=== PATIENT | male | born 1960 | race Caucasian/White ===

== ENCOUNTER 2018-07-22 10:35 | Day surgery (SDC) | payer BC, OTHER ==
[2018-07-17 14:10] VITALS: BMI 27.8
[~2018-07-22 10:35] MED LIST: LACTATED RINGERS 1,000 ML IV SCH; LIDOCAINE 1% 20 ML VIAL (10MG/ML) FOR IV START INTRADERMA PRN
[2018-07-22 11:14] VITALS: TEMP 97.4
[2018-07-22] MEDS ORDERED: PROPOFOL 10 MG/ML 20 ML VIAL IV ONE (11:22)
--- NOTE | 2018-07-22 11:59 | P.PCN ---
Date of Procedure: 07/22/18 Procedure(s) Performed: Procedure: Total colonoscopy. Preoperative diagnosis: Screening for neoplasia. Postoperative diagnosis: Exam within normal limits. Preparation: HalfLytely prep. Sedation: Was provided by anesthesia. Brief clinical history: The patient is a 58-year-old male who is scheduled for t his evaluation for screening for neoplasia age being his risk factor. He has no abdominal complaints, bleeding or anemia. His prior exam was around 15 years ago. Procedure: With the patient on his left lateral decubitus position and after informed consent and adequate sedation, the perianal area was inspected and it did not show any fissures or fistulas. The were no masses felt on digital rect al examination. The Olympus CFH 190L video colonoscope was then inserted in the rectum in the usual fashion and advanced to the cecum. The mucosa appeared healthy. No polyps or tumors were seen or any obvious diverticular disease or other pathology. I retroflexed the endoscope in the rectum before the endoscope was withdrawn. The patient tolerated the procedure well. Plan: The patient was reassured. He will follow up with you as planned and I recommended repeat exam in 10 years.
[2018-07-22 12:09] VITALS: BP 154/84; PULSE 58; RESP 16
== END 2018-07-22 12:40 | disposition home or self-care (01) ==
LOC: ORWHC2ENDO 10:35
DX: Z12.11 Encounter for screening for malignant neoplasm of colon (principal); Z88.1 Allergy status to other antibiotic agents; I10 Essential (primary) hypertension; G47.33 Obstructive sleep apnea (adult) (pediatric); F17.200 Nicotine dependence, unspecified, uncomplicated; Z79.82 Long term (current) use of aspirin
CPT/HCPCS: J2704; G0121; 45378

== ENCOUNTER 2019-10-01 13:20 | Emergency (ER) | payer BC ==
[2019-10-01 13:44] VITALS: PULSE 81; RESP 18; TEMP 98.6
--- NOTE | 2019-10-01 14:26 | ED ---
General Adult HPI - General Chief complaint: Psychiatric Symptoms Stated complaint: Mental Health Time Seen by Provider: 10/01/19 13:40 Source: patient, RN notes reviewed, old records reviewed Mode of arrival: ambulatory Limitations: no limitations - History of Present Illness Initial comments: This is a 59-year-old male who presents emergency Department with his sister. Patient comes in because he has been depressed lately and he has stopped going to work and stopped taking his medications and stopped using his BiPAP but she refers sleep apnea. Patient states she is extremely fatigued probably secondary to the fact she is not getting good sleep without his sleep apnea machine. Patient states he is not suicidal however he does not care if he lives or dies. Patient has no specific plan and does not believe he will harm himself. Patient states he comes in today to get help because he hasn't setting his family. Patient states his been no incident that he can think of that is set him into a depression denies any problems at work or at home. Patient denies any physical complaints today. Patient denies headache patient denies numbness weakness. Patient denies any chest pain difficulty breathing first breath. Patient denies abdominal pain patient denies nausea vomiting diarrhea. Patient states she is depression started approximately one year ago and he was seen a counselor up into the COVID crisis and then he stopped seeing that person. - Related Data Home Medications Medication Instructions Recorded Confirmed Aspirin 1 tab PO DAILY 07/22/18 07/22/18 Lisinopril [Zestril] 1 tab PO DAILY 07/22/18 07/22/18 Allergies Allergy/AdvReac Type Severity Reaction Status Date / Time cephalexin [From Keflex] AdvReac Unknown PAIN IN Verified 10/01/19 13:43 FACE Review of Systems ROS Statement: Those systems with pertinent positive or pertinent negative responses have been documented in the HPI. ROS Other: All systems not noted in ROS Statement are negative. Past Medical History Past Medical History: Hypertension, Sleep Apnea/CPAP/BIPAP Additional Past Medical History / Comment(s): C-PAP MACHINE History of Any Multi-Drug Resistant Organisms: None Reported Past Surgical History: Orthopedic Surgery Additional Past Surgical History / Comment(s): ELBOW (15 YRS OLD)., SLEEP APNEA SURGERY. Past Anesthesia/Blood Transfusion Reactions: Previous Problems w/ Anesthesia, Postoperative Nausea & Vomiting (PONV) Additional Past Anesthesia/Blood Transfusion Reaction / Comment(s): DIZZY POST- OP Past Psychological History: No Psychological Hx Reported Smoking Status: Current every day smoker Past Alcohol Use History: Rare Past Drug Use History: None Reported - Past Family History Brother(s) Family Medical History: Cancer Additional Family Medical History / Comment(s): ESOPHAGEAL CANCER General Exam - General Exam Comments Initial Comments: GENERAL: Patient is well-developed and well-nourished. Patient is nontoxic and well- hydrated and is in no acute distress. ENT: Neck is soft and supple. No significant lymphadenopathy is noted. Oropharynx is clear. Moist mucous membranes. Neck has full range of motion without eliciting any pain. EYES: The sclera were anicteric and conjunctiva were pink and moist. Extraocular movements were intact and pupils were equal round and reactive to light. Eyelids were unremarkable. PULMONARY: Unlabored respirations. Good breath sounds bilaterally. No audible rales rhonchi or wheezing was noted. CARDIOVASCULAR: There is a regular rate and rhythm without any murmurs gallops or rubs. ABDOMEN: Soft and nontender with normal bowel sounds. SKIN: Skin is clear with no lesions or rashes and otherwise unremarkable. NEUROLOGIC: Patient is alert and oriented x3. Cranial nerves II through XII are grossly intact. Motor and sensory are also intact. Normal speech, volume and content. Symmetrical smile. MUSCULOSKELETAL: Normal extremities with adequate strength and full range of motion. No lower extremity swelling or edema. No calf tenderness. LYMPHATICS: No significant lymphadenopathy is noted PSYCHIATRIC: Patient is very flat affect and does state that he which is essentially not be here but he is not suicidal. Limitations: no limitations Course Vital Signs 10/01/19 13:37 Temperature 98.6 F Pulse Rate 81 Respiratory 18 Rate Blood Pressure 155/103 O2 Sat by Pulse 95 Oximetry Medical Decision Making - Medical Decision Making EPS evaluated the patient and determined that the patient could follow-up as an outpatient patient himself agreed. Patient continues to state he was not suicidal or threat to himself in any way. - Lab Data Lab Results 10/01/19 Range/Units 14:10 Urine Opiates Screen Not Detected (NotDetected) Ur Oxycodone Screen Not Detected (NotDetected) Urine Methadone Screen Not Detected (NotDetected) Ur Propoxyphene Screen Not Detected (NotDetected) Ur Barbiturates Screen Not Detected (NotDetected) U Tricyclic Antidepress Not Detected (NotDetected) Ur Phencyclidine Scrn Not Detected (NotDetected) Ur Amphetamines Screen Not Detected (NotDetected) U Methamphetamines Scrn Not Detected (NotDetected) U Benzodiazepines Scrn Not Detected (NotDetected) Urine Cocaine Screen Not Detected (NotDetected) U Marijuana (THC) Screen Detected H (NotDetected) Disposition Clinical Impression: Depression Disposition: HOME SELF-CARE Condition: Good Instructions (If sedation given, give patient instructions): Depression (ED) Additional Instructions: Patient should start using his BiPAP and also start taking his blood pressure medications. Patient follow-up with Dr. flor. Patient should return to emergency department if he is feeling suicidal or having suicidal ideations. Is patient prescribed a controlled substance at d/c from ED?: No Referrals: Tello Flor MD [Primary Care Provider] - 1-2 days Time of Disposition: 15:21
[2019-10-01 15:03] LABS: Amphetamine Screen,Urine Not Detected (NotDetected); Barbiturate Screen,Urine Not Detected (NotDetected); Benzodiazepines Screen,Urine Not Detected (NotDetected); Cocaine Screen,Urine Not Detected (NotDetected); Methadone Screen, Urine Not Detected (NotDetected); Opiate Screen,Urine Not Detected (NotDetected); Oxycodone Screen, Urine Not Detected (NotDetected); Phencyclidine Screen,Urine Not Detected (NotDetected); Tricyclic Antidepressant,Urine Not Detected (NotDetected); Urn Cannabinoid Scrn Detected (NotDetected)
[2019-10-01 15:40] VITALS: BP 151/95
== END 2019-10-01 15:42 | disposition home or self-care (01) ==
LOC: EC 13:20
DX: F32.9 Major depressive disorder, single episode, unspecified (principal); R53.83 Other fatigue; I10 Essential (primary) hypertension; G47.30 Sleep apnea, unspecified; F17.200 Nicotine dependence, unspecified, uncomplicated; Z79.82 Long term (current) use of aspirin; Z79.899 Other long term (current) drug therapy; Z88.1 Allergy status to other antibiotic agents; Z99.89 Dependence on other enabling machines and devices
CPT/HCPCS: 80306; 99284

== ENCOUNTER → 2021-05-27 | Outpatient (CLI) | payer BC ==
[2021-05-27 16:17] LABS: Basophils # (A) 0.05 X 10*3/uL (0.00-0.10); Basophils % (A) 0.6 %; Eosinophils # (A) 0.52 X 10*3/uL (0.04-0.35); Eosinophils % (A) 5.9 %; HCT 34.4 % (39.6-50.0); HGB 11.3 g/dL (13.0-17.0); Lymphocytes % (A) 22.7 %; MCHC 32.8 g/dL (32.0-37.0); MCV 88.2 fL (80.0-97.0); Mean Platelet Volume 10.2 fL (9.5-12.2); Monocytes # (A) 0.54 X 10*3/uL (0.20-1.00); Monocytes % (A) 6.1 %; Neutrophils # (A) 5.64 X 10*3/uL (1.80-7.70); Neutrophils % (A) 63.9 %; Platelet Count 282 X 10*3/uL (140-440); RDW 13.2 % (11.5-14.5); WBC 8.82 X 10*3/uL (4.50-10.00)
[2021-05-27 16:24] LABS: African American GFR (CKD) 52.7 (60.0-200.0); Albumin 4.5 g/dL (3.8-4.9); Albumin/Globulin Ratio 2.02 (1.60-3.17); Anion Gap 12.3 mmol/L (10.00-18.00); BUN/Creat Ratio 15.63 Ratio (12.00-20.00); Calcium 9.4 mg/dL (8.7-10.3); Carbon Dioxide 24.3 mmol/L (20.0-27.5); Globulin 2.2 g/dL (1.6-3.3); Non-African American GFR(CKD) 45.5 (60.0-200.0); Potassium 4.5 mmol/L (3.5-5.5); Prostate Specific Antigen 3.7 ng/mL (0.00-4.50); Total Bilirubin 0.3 mg/dL (0.30-1.20); Total Protein 6.7 g/dL (6.2-8.2)
[2021-05-27 18:55] LABS: Creatinine 24 Hour,Urine 1361.8 mg/24hr (1000.0-2000.0)
[2021-05-28 02:00] LABS: Total Protein 24 Hour,Urine 8.2 mg/dL (0.0-165.0)
[2021-05-28 13:59] LABS: Total Volume 24 Hour,Urine 2200 mL
== END | disposition home or self-care (01) ==
LOC: LABWHC1 08:40
PROVIDERS: ATTEND Nurse Practitioner Family
DX: Z51.81 Encounter for therapeutic drug level monitoring (principal); D64.9 Anemia, unspecified; E78.00 Pure hypercholesterolemia, unspecified; E78.5 Hyperlipidemia, unspecified; N40.1 Benign prostatic hyperplasia with lower urinary tract symptoms; K59.00 Constipation, unspecified; R97.20 Elevated prostate specific antigen [PSA]; R39.14 Feeling of incomplete bladder emptying
CPT/HCPCS: 36415; 80053; 81050; 82575; 84153; 84156; 85025

== ENCOUNTER → 2021-06-10 | Outpatient (CLI) | payer BC ==
--- NOTE | 2021-06-12 08:59 | US ---
EXAMINATION TYPE: US kidneys/renal and bladder DATE OF EXAM: 06/10/2021 COMPARISON: NONE CLINICAL HISTORY: N18.31. gross hematuria and cannot void as long EXAM MEASUREMENTS: Right Kidney: 11.3 x 5.5 x 5.2 cm Left Kidney: 11.5 x 5.1 x 6.3 cm Right Kidney: Hydronephrosis Left Kidney: Hydronephrosis Bladder: thickened wall = 1.2cm IMPRESSION: 1. Moderate bilateral hydronephrosis. 2. Diffusely thickened urinary bladder wall.
== END | disposition home or self-care (01) ==
LOC: RADUSWWP 15:54
PROVIDERS: ATTEND Family Medicine
DX: N13.30 Unspecified hydronephrosis (principal); N32.89 Other specified disorders of bladder
CPT/HCPCS: 76770

== ENCOUNTER → 2024-01-02 | Outpatient (CLI) | payer MEDICARE, BC ==
--- NOTE | 2024-01-03 11:13 | CA ---
Transthoracic Echo Report Name: El Collier Age: 63 Gender: M : 1960 Exam Date: 01/02/2024 14:51 Exam Location: [facility] Ht (in): 71 Wt (lb): 235 Ordering Physician: Tello Jordan MD Attending/Referring Phys: Revenue Enforcement Agent Brandy Garcia RDCS Procedure CPT: Indications: E78.2 HYPERLIPIDEMIA I10 HTN Cardiac Hx: Technical Quality: Good Contrast 1: Total Dose (mL): Contrast 2: Total Dose (mL): MEASUREMENTS (Male / Female) Normal Values 2D ECHO LV Diastolic Diameter PLAX 4.8 cm 4.2 - 5.9 / 3.9 - 5.3 cm LV Systolic Diameter PLAX 3.1 cm IVS Diastolic Thickness 1.3 cm 0.6 - 1.0 / 0.6 - 0.9 cm LVPW Diastolic Thickness 1.1 cm 0.6 - 1.0 / 0.6 - 0.9 cm LV Relative Wall Thickness 0.5 LVOT Diameter 2.2 cm LV Diastolic Volume MOD BP 123.9 cm??? 67 - 155 / 56 - 104 cm??? LV Systolic Volume MOD BP 53.1 cm??? 22 - 58 / 19 - 49 cm??? LV Ejection Fraction MOD BP 57.2 % >= 55 % LV [place] 23756.5 cm???/min???m??? LV Diastolic Volume MOD 4C 115.7 cm??? LV Systolic Volume MOD 4C 52.3 cm??? LV Ejection Fraction MOD 4C 54.8 % LV Cardiac Index MOD 4C 32105.6 cm???/min???m??? LV Diastolic Length 4C 8.5 cm LV Systolic Length 4C 7.4 cm LV Diastolic Volume MOD 2C 131.9 cm??? LV Systolic Volume MOD 2C 51.2 cm??? LV Ejection Fraction MOD 2C 61.2 % LV Cardiac Index MOD 2C 31823.7 cm???/min???m??? LV Diastolic Length 2C 8.5 cm LV Systolic Length 2C 7.0 cm LA Volume 51.3 cm??? 18 - 58 / 22 - 52 cm??? LA Volume Index 21.9 cm???/m??? 16 - 28 cm???/m??? Ascending Aorta Diameter 3.4 cm DOPPLER AV Peak Velocity 153.9 cm/s AV Peak Gradient 9.5 mmHg AV Mean Velocity 100.4 cm/s AV Mean Gradient 4.6 mmHg AV Velocity Time Integral 28.3 cm LVOT Peak Velocity 116.2 cm/s LVOT Peak Gradient 5.4 mmHg LVOT Velocity Time Integral 26.0 cm LVOT Stroke Volume 100.4 cm??? LVOT Stroke Volume Index 44.5 ml/m??? LVOT Cardiac Index 52634.4 cm???/min???m??? AV Area Cont Eq vti 3.6 cm??? AV Area Cont Eq pk 2.9 cm??? MV Peak Velocity 127.7 cm/s MV Peak Gradient 6.5 mmHg MV Mean Velocity 77.0 cm/s MV Mean Gradient 2.7 mmHg MV Velocity Time Integral 37.0 cm MV Area PHT 3.3 cm??? Mitral E Point Velocity 103.6 cm/s Mitral A Point Velocity 93.9 cm/s Mitral E to A Ratio 1.1 MV Deceleration Time 229.7 ms TR Peak Velocity 257.2 cm/s TR Peak Gradient 26.5 mmHg Right Atrial Pressure 5.0 mmHg Pulmonary Artery Systolic Pressu 31.5 mmHg Right Ventricular Systolic Press 31.5 mmHg PV Peak Velocity 101.6 cm/s PV Peak Gradient 4.1 mmHg FINDINGS Left Ventricle Left ventricular ejection fraction is estimated at 55-60 %. Mildly increased septal wall thickness. Left ventricular cavity size normal. No obvious regional wall motion abnormalities. Right Ventricle Normal right ventricular size and function. Right ventricular systolic pressure within normal limits. Right Atrium Normal right atrial size. Left Atrium Normal left atrial size. Mitral Valve Structurally normal mitral valve. No mitral stenosis, regurgitation or prolapse. Aortic Valve Trileaflet aortic valve. No aortic valve stenosis or regurgitation. Tricuspid Valve Structurally normal tricuspid valve. No tricuspid stenosis. Mild tricuspid regurgitation. Pulmonic Valve Pulmonic valve not well visualized. No pulmonic stenosis. No pulmonic regurgitation. Pericardium No pericardial effusion. Echo free space anterior to the right ventricle likely represents a fat pad. Aorta Normal size aortic root and proximal ascending aorta. CONCLUSIONS Normal LV size and systolic function. No significant abnormality on the Doppler exam. No pulmonary hypertension. No pericardial effusion. Possible fat pad Previewed by: Dr. Raj Farmer MD (Electronically Signed) Final Date: 03 January 2024 11:12
== END | disposition home or self-care (01) ==
LOC: RADECHMAIN 14:19
PROVIDERS: ATTEND Family Medicine
DX: E78.2 Mixed hyperlipidemia (principal); I10 Essential (primary) hypertension
CPT/HCPCS: 93306

== ENCOUNTER → 2024-02-28 | Outpatient (CLI) | payer MEDICARE, BC ==
--- NOTE | 2024-02-28 12:43 | CTL ---
EXAMINATION TYPE: CT Low Dose Lung DATE OF EXAM ORDERED: 02/28/2024 COMPARISON: None CLINICAL INDICATION: Male, 63 years old with history of Z12.2 Screening; Z87.891; PHH, PERSONAL HISTO RY OF NICOTINE DEPENDENCE. .5 pack/ day x 40 years former smoker, Lung cancer screening, History of S moking/tobacco use. TECHNIQUE: Low dose computed tomography scan was performed through the chest at 1 mm thick sections a nd reconstructed images in multiple planes at 1 mm and [address] DLP: 91.[address] CTDI: 2.40 mGy Automated exposure control for dose reduction was used. CT DIAGNOSTIC QUALITY: Satisfactory FINDINGS: Nodules: Superior segment right lower lobe peripheral 3 mm pulmonary nodule (series 6 image 19). Adjacent pleu ral-based 2.9 mm pulmonary nodule (series 6, image 19). LUNGS: COPD: Severity: Minimal Fibrosis: Severity: None Lymph nodes: None Other findings: None RIGHT PLEURAL SPACE: Effusion: None Calcification: None Thickening: None Pneumothorax: None LEFT PLEURAL SPACE: Effusion: None Calcification: None Thickening: None Pneumothorax: None HEART: Heart Size: Normal Coronary Calcification: Moderate Pericardial Effusion: None OTHER FINDINGS: Upper abdomen: None Bony thorax: Multilevel degenerative changes of the lower thoracolumbar spine. Supraclavicular region: None Other: None IMPRESSION: Couple pulmonary nodules measuring [address] LUNG RAD AND [address] CHEST RECOMMENDATION: Lung-Rad 2 Benign Appearance or Behavior: Continue annual sc reening with LDCT in 12 months. S Modifier (other clinically significant findings): None [facility], , 02/28/2024 12:40 PM
== END | disposition home or self-care (01) ==
LOC: RADCTMAIN 07:41
PROVIDERS: ATTEND Family Medicine
CPT/HCPCS: 71271